=== PATIENT | male | born 1990 | race Caucasian/White ===

== ENCOUNTER 2025-02-11 20:34 | Emergency (ER) | payer OTHER ==
[~2025-02-11] VITALS: Ht 182.9 cm; Wt 101.0 kg
[2025-02-12 00:11] VITALS: BP 117/75; TEMP 97.2; O2SAT 98
== END 2025-02-12 00:14 | disposition home or self-care (01) ==
LOC: M ED 20:34
DX: S76.302A Unspecified injury of muscle, fascia and tendon of the posterior muscle group at thigh level, left thigh, initial encounter (principal); Y92.830 Public park as the place of occurrence of the external cause; Y93.64 Activity, baseball; Y99.9 Unspecified external cause status; Z88.1 Allergy status to other antibiotic agents